=== PATIENT | female | born 2000 | race Caucasian/White ===

== ENCOUNTER → 2024-12-30 13:45 | Outpatient (BNVA) | payer BC, SELFPAY | PROVIDERS: PCP Nurse Practitioner; Visit Provider Nurse Practitioner | DX: Z30.09 Encounter for other general counseling and advice on contraception (principal) | CPT/HCPCS: 80053; 84443; 85025 ==

== ENCOUNTER → 2025-01-07 10:01 | Outpatient (BNVA) | payer BC, SELFPAY | PROVIDERS: PCP Nurse Practitioner; Visit Provider Nurse Practitioner | DX: Z12.4 Encounter for screening for malignant neoplasm of cervix (principal); R30.0 Dysuria | CPT/HCPCS: 81000; 87086; 88175 ==